=== PATIENT | male | born 1980 | race Caucasian/White ===

== ENCOUNTER 2018-04-19 18:16 | Emergency (ER) | payer MEDICAID ==
[~2018-04-19] VITALS: Ht 185.4 cm; Wt 90.1 kg
[2018-04-19] MEDS ORDERED: EFF25T PO (19:45)
[2018-04-19 19:46] VITALS: BP 152/92
[2018-04-19] MEDS ORDERED: CYCL-1 PO (20:34)
== END 2018-04-19 20:46 | disposition home or self-care (01) ==
LOC: ER 18:17
DX: S46.312A Strain of muscle, fascia and tendon of triceps, left arm, initial encounter (principal); X50.1XXA Overexertion from prolonged static or awkward postures, initial encounter; Y93.43 Activity, gymnastics; Y92.39 Other specified sports and athletic area as the place of occurrence of the external cause; Y99.9 Unspecified external cause status
CPT/HCPCS: 99283

== ENCOUNTER 2019-10-24 06:45 | Inpatient (IN) | payer MEDICAID, OTHER ==
[~2019-10-24] VITALS: Ht 408.9 cm; Wt 89.0 kg
[2019-10-24] VITALS (12 sets, daily range): BP systolic 125–173; BP diastolic 54–89
[~2019-10-24 06:45] MED LIST: CYCL-1 PO; VENL25TA48 PO
[2019-10-24 07:28] LABS: BASOPHILS % (AUTO) 0.4 % (0-1); EOSINOPHILS # (AUTO) 0.1 X10'3 (0-0.9); EOSINOPHILS % (AUTO) 1.7 % (0-6); HEMATOCRIT 47.5 % (42.0-52.0); HEMOGLOBIN 15.8 g/dl (14.0-17.9); LYMPHOCYTES # (AUTO) 0.8 X10'3 (1.1-4.8); LYMPHOCYTES % (AUTO) 14.6 % (21-51); MEAN CORPUSCULAR HEMOGLOBIN 29.9 PG (27.0-31.0); MEAN CORPUSCULAR HGB CONC 33.3 g/dL (33.0-36.5); MEAN PLATELET VOLUME 9.4 FL (7.4-10.4); MONOCYTES # (AUTO) 0.3 X10'3 (0-0.9); MONOCYTES % (AUTO) 5.6 % (2-12); NEUTROPHILS # (AUTO) 4.5 X10'3 (1.8-7.7); NEUTROPHILS % (AUTO) 77.7 % (42-75); PLATELET COUNT 210 X10'3 (140-440); RED BLOOD COUNT 5.28 X10'6 (4.70-6.10); RED CELL DISTRIBUTION WIDTH 13.9 % (11.5-14.5); WHITE BLOOD COUNT 5.8 X10'3 (4.5-11.0)
[2019-10-24 07:34] LABS: ALANINE AMINOTRANSFERASE 969 U/L (12-78); ALBUMIN 4.2 G/DL (3.4-5.0); ALBUMIN/GLOBULIN RATIO 1.1 (1.1-1.5); ALKALINE PHOSPHATASE 168 IU/L (46-116); AMYLASE 65 U/L (25-115); ANION GAP 6 (8-16); ASPARTATE AMINO TRANSFERASE 491 U/L (10-37); BILIRUBIN,TOTAL 2.4 MG/DL (0.1-1.0); BLOOD UREA NITROGEN 11 MG/DL (7-18); BUN/CREATININE RATIO 8.7 (5.4-32.0); CHLORIDE 106 MMOL/L (99-107); CREATININE 1.26 MG/DL (0.60-1.10); GLUCOSE 167 MG/DL (70-104); LIPASE 265 U/L (73-393); POTASSIUM 3.9 MMOL/L (3.5-5.1); SODIUM 139 MMOL/L (135-145); TOTAL CARBON DIOXIDE 26.8 MMOL/L (24-32); TOTAL PROTEIN 7.9 G/DL (6.4-8.2); eGFR 64 ML/MIN
[2019-10-24] MEDS ORDERED: morphine 4 MG/ML inj SYRINge IV PRN (07:40)
[2019-10-24] MEDS ORDERED: ondansetron/PF 4mg/2ml inj IV ONE (07:40)
[2019-10-24] MEDS ORDERED: normal saline 1000ML IV soln IVB ONE (07:40)
[2019-10-24] MEDS ORDERED: pantoprazole 40 MG vial IV ONE (07:40)
[2019-10-24] MEDS ORDERED: famotidine/PF 10 mg/ml inj IV ONE (07:40)
[2019-10-24 08:04] LABS: CLARITY,URINE CLEAR (Clear); COLOR,URINE YELLOW (Yellow); GLUCOSE, URINE NEGATIVE (Neg); KETONES,URINE NEGATIVE (Neg); LEUKOCYTE ESTERASE ,URINE NEGATIVE (Neg); NITRITES, URINE NEGATIVE (Neg); OCCULT BLOOD,URINE TRACE-INTACT (Neg); PH,URINE 6.5 (4.8-8.0); PROTEIN,URINE NEGATIVE (Neg)
[2019-10-24 08:07] LABS: UA COLLECTION TYPE NON-SPECIFIED
[2019-10-24 08:16] LABS: MUCUS STRANDS MODERATE /LPF (Neg); SQUAMOUS EPITHELIAL CELL,UR FEW /LPF (FEW)
[2019-10-24 08:17] LABS: CAL OXALATE CRYSTALS 3+ /HPF (NEGATIVE); HYALINE CASTS 0-3 /LPF (NEGATIVE)
[2019-10-24 08:18] LABS: BACTERIA,URINE 1+ /HPF (Neg); RBC,URINE 0-2 /HPF (0-2); WBC,URINE 0-4 /HPF (0-4)
[2019-10-24] MEDS ORDERED: bisacodyl 10mg suppository rectal RC PRN (09:45)
[2019-10-24] MEDS ORDERED: morphine 2 MG/ML inj. syringe IV PRN ×2 (09:45)
[2019-10-24] MEDS ORDERED: HYDROcodone/acetaminophen 5mg/325mg tablet PO PRN (09:45)
[2019-10-24] MEDS ORDERED: HYDROcodone/acetaminophen 10/325mg tab PO PRN (09:45)
[2019-10-24] MEDS ORDERED: mag hydrox/Alum hydrox/simeth 30ml oral suspension PO PRN (09:45)
[2019-10-24] MEDS ORDERED: magnesium 4gm in 100ml NS 100 ML IV PRN (09:45)
[2019-10-24] MEDS ORDERED: acetaminophen 325mg tablet PO PRN ×2 (09:45)
[2019-10-24] MEDS ORDERED: ondansetron/PF 4mg/2ml inj IV PRN (09:45)
[2019-10-24] MEDS ORDERED: magnesium Cl slow-release 64mg tablet PO PRN (09:45)
[2019-10-24] MEDS ORDERED: NORMAL SALINE IV ONE ×2 (09:45→14:50)
[2019-10-24] MEDS ORDERED: SINCALIDE IV ONE ×2 (09:45→14:50)
[2019-10-24] MEDS ORDERED: magnesium 2GM in 50ml NS 50 ML IV PRN (09:45)
[2019-10-24] MEDS ORDERED: acetaminophen 650mg rectal suppository RC PRN (09:45)
[2019-10-24] MEDS ORDERED: potassium CL 10mEq/100ml bag 100 ML IV PRN ×2 (09:45)
[2019-10-24] MEDS ORDERED: diphenhydrAMINE 25mg capsule PO PRN (09:45)
[2019-10-24] MEDS ORDERED: magnesium hydroxide 30ml (MOM) UD suspension PO PRN (09:45)
[2019-10-24] MEDS ORDERED: potassium Cl 20 mEq SR tablet PO PRN ×2 (09:45)
[2019-10-24] MEDS: normal saline 1000ml 1,000 ML IV SCH ×2 (10:06→16:22)
[2019-10-24 10:22] LABS: URINE AMPHETAMINE SCREEN NEGATIVE (Neg); URINE BARBITUATE SCREEN NEGATIVE (Neg); URINE BENZODIAZEPINES SCREEN NEGATIVE (Neg); URINE CANNABINOID SCREEN NEGATIVE (Neg); URINE COCAINE SCREEN NEGATIVE (Neg); URINE METHADONE SCREEN NEGATIVE (Neg); URINE OPIATE SCREEN NEGATIVE (Neg); URINE PHENCYCLIDINE SCREEN NEGATIVE (Neg)
[2019-10-24] MEDS ORDERED: NO HOME MEDS (10:31)
[2019-10-24 10:38] LABS: HEMOGLOBIN A1C 6.1 % (4.5-6.2)
[2019-10-24 10:54] LABS: ETHANOL < 0.010 GM/DL (0.0-0.010)
--- NOTE | 2019-10-24 11:46 | NUR ---
PAGER ID: [phone] MESSAGE: JUSTIN [id number] RE: [facility] ED [facility], DO YOU WANT HIDA AND MRCP?
--- NOTE | 2019-10-24 12:00 | NUR ---
PATIENT TO MRI
--- NOTE | 2019-10-24 12:12 | NUR ---
ATTEMPTED TO CALL REPORT, NO RN ASSIGNED TO PATIENT. RN WILL RETURN CALL.
--- NOTE | 2019-10-24 13:10 | NUR ---
RECEIVED REPORT FROM ARGENIS HODGE. PATIENT ARRIVED TO FLOOR. TRANSFERRED TO BED INDEPENDENTLY.
[2019-10-24 14:42] LABS: HIV ANTIBODY 1&2 RAPID NON-REACTIVE (Neg)
--- NOTE | 2019-10-24 16:28 | NUR ---
PAGER ID: [phone] MESSAGE: Margi HermosilloA: patient back from HIDA scan, it has resulted. would you like to keep him NPO? [phone]
[2019-10-24] MEDS ORDERED: fentaNYL/PF 50MCG/1 ML 2ML syringe ONE (17:02)
[2019-10-24] MEDS ORDERED: MIDAZolam 5mg/5ml vial ONE ×2 (17:02)
[2019-10-24] MEDS ORDERED: LIDOcaine Viscous 15ml cup ONE (17:02)
[2019-10-24] MEDS ORDERED: diphenhydrAMINE 50 mg/ml inj ONE (17:02)
[2019-10-24] MEDS ORDERED: iohexol 300 MG/1 ML 50ml polymer ONE (17:03)
[2019-10-24] MEDS ORDERED: glucagon, human recombinant 1mg kit ONE (17:03)
--- NOTE | 2019-10-24 18:31 | NUR ---
Problems reprioritized. Patient report given, questions answered & plan of care reviewed with ARGENIS AG.
[2019-10-24] MEDS ORDERED: K and/or MAG REPLACEMENT MC SCH (20:00)
[2019-10-24] MEDS ORDERED: heparin, porcine 5000 units/ml vial SQ SCH (20:00)
--- NOTE | 2019-10-25 03:20 | NUR ---
Patient woke up this morning and wanted to speak with nurse. Patient wanted to be disconnected to his IV fluids. Patient also stated he woke up this morning feeling great. In a good mood. No pain rating it 0/10. Patient decided he does not want to have the surgery done. Last night when Dr. Ronaldo haile MD was made aware that patient was unsure if he wanted to proceed with surgery. Surgeon ask patient why he didn't want to have it done and explain the benefits of having it done and the risks of not having it done. Surgeon states he will come in the morning again to see if he would like to proceed with the surgery.
[2019-10-25 05:11] LABS: BASOPHILS % (AUTO) 0.5 % (0-1); EOSINOPHILS # (AUTO) 0.2 X10'3 (0-0.9); EOSINOPHILS % (AUTO) 4.4 % (0-6); HEMATOCRIT 42.2 % (42.0-52.0); HEMOGLOBIN 14.1 g/dl (14.0-17.9); LYMPHOCYTES # (AUTO) 1.3 X10'3 (1.1-4.8); LYMPHOCYTES % (AUTO) 22.7 % (21-51); MEAN CORPUSCULAR HEMOGLOBIN 30.1 PG (27.0-31.0); MEAN CORPUSCULAR HGB CONC 33.3 g/dL (33.0-36.5); MEAN CORPUSCULAR VOLUME 90.4 FL (78-98); MEAN PLATELET VOLUME 9.5 FL (7.4-10.4); MONOCYTES # (AUTO) 0.5 X10'3 (0-0.9); MONOCYTES % (AUTO) 8.8 % (2-12); NEUTROPHILS # (AUTO) 3.5 X10'3 (1.8-7.7); NEUTROPHILS % (AUTO) 63.6 % (42-75); PLATELET COUNT 169 X10'3 (140-440); RED BLOOD COUNT 4.67 X10'6 (4.70-6.10); RED CELL DISTRIBUTION WIDTH 13.8 % (11.5-14.5); WHITE BLOOD COUNT 5.6 X10'3 (4.5-11.0)
[2019-10-25 05:44] LABS: ALANINE AMINOTRANSFERASE 611 U/L (12-78); ALBUMIN 3.4 G/DL (3.4-5.0); ALBUMIN/GLOBULIN RATIO 1.1 (1.1-1.5); ALKALINE PHOSPHATASE 143 IU/L (46-116); ANION GAP 8 (8-16); ASPARTATE AMINO TRANSFERASE 159 U/L (10-37); BILIRUBIN,TOTAL 0.9 MG/DL (0.1-1.0); BLOOD UREA NITROGEN 9 MG/DL (7-18); BUN/CREATININE RATIO 8.3 (5.4-32.0); CALCIUM 8.6 MG/DL (8.5-10.1); CHLORIDE 107 MMOL/L (99-107); CHOLESTEROL 190 MG/DL (0-200); CREATININE 1.09 MG/DL (0.60-1.10); GLUCOSE 97 MG/DL (70-104); HDL CHOLESTEROL 64 MG/DL (35-60); LDL CHOLESTEROL 109 MG/DL (50-100); MAGNESIUM 1.9 MG/DL (1.5-2.4); POTASSIUM 3.6 MMOL/L (3.5-5.1); SODIUM 141 MMOL/L (135-145); TOTAL CARBON DIOXIDE 26.5 MMOL/L (24-32); TOTAL PROTEIN 6.6 G/DL (6.4-8.2); TRIGLYCERIDES 75 MG/DL (20-135); eGFR 76 ML/MIN
[2019-10-25] MEDS: normal saline 1000ml 1,000 ML IV SCH (05:44)
--- NOTE | 2019-10-25 06:47 | NUR ---
Patient in room [facility] 348A. I have received report from ARGENIS AG and had the opportunity to ask questions and assume patient care.
[2019-10-25 07:00] VITALS: BP 135/86
--- NOTE | 2019-10-25 08:15 | NUR ---
PATIENT LEFT AMA, WOULD NOT WAIT FOR DR TO COME SEE HIM. IV WAS TAKEN OUT. PATIENT WAS EDUCATED SEVERAL TIMES ABOUT CONDITION AND THAT EVEN THOUGH HE FEELS WELL RIGHT NOW WITHOUT SURGERY SYMPTOMS HAVE THE POTENTIAL TO COME BACK, PATIENT STATED HE WAS AWARE AND DID NOT WANT SURGERY AT THIS TIME.
[2019-10-25 11:12] LABS: HBSAG SCREEN Negative (Negative); HEP A AB, IGM Negative (Negative); HEPATITIS C ANTIBODY <0.1 s/co ratio (0.0-0.9)
== END 2019-10-25 09:08 | disposition left against medical advice (07) | DRG 446 ==
LOC: ER 06:45 → ED HOLD 09:44 → SUR 3N 13:04
PROVIDERS: ADMIT Family Medicine; ATTEND Family Medicine
PROC: 0FC98ZZ Extirpation of Matter from Common Bile Duct, Via Natural or Artificial Opening Endoscopic (ICD-10-PCS; principal; 2019-10-24)
PROC: BF101ZZ Fluoroscopy of Bile Ducts using Low Osmolar Contrast (ICD-10-PCS; 2019-10-24)
PROC: CF1C1ZZ Planar Nuclear Medicine Imaging of Hepatobiliary System, All using Technetium 99m (Tc-99m) (ICD-10-PCS; 2019-10-24)
DX: K80.51 Calculus of bile duct without cholangitis or cholecystitis with obstruction (principal); R19.7 Diarrhea, unspecified; Z53.29 Procedure and treatment not carried out because of patient's decision for other reasons; R93.2 Abnormal findings on diagnostic imaging of liver and biliary tract
CPT/HCPCS: 36415; 43262; 43264; 74176; 74181; 78227; 80053; 80061; 80305; 80320; 81001; 82150; 83036; 83690; 83735; 84100; 84443; 85025; 86703; 86705; 86706; 86709; 86803; 87081; 87340; 96374; 96375; 99152; 99153; 99285; A4620; A9537; C1769; C9113; G0378; J1200; J1610; J2250; J2405; J3010; J3490; J7030; J7040; Q9967

== ENCOUNTER 2024-02-17 10:16 | Emergency (ER) | payer OTHER, MEDICAID ==
[~2024-02-17] VITALS: Ht 185.4 cm; Wt 98.0 kg
[~2024-02-17 10:16] MED LIST changes: -CYCL-1 PO; +NO HOME MEDS; -VENL25TA48 PO
[2024-02-17 12:27] LABS: BASOPHILS % (AUTO) 0.6 % (0-1); EOSINOPHILS # (AUTO) 0.1 X10'3 (0-0.9); EOSINOPHILS % (AUTO) 1.4 % (0-6); HEMATOCRIT 46.4 % (42.0-52.0); LYMPHOCYTES # (AUTO) 1.7 X10'3 (1.1-4.8); LYMPHOCYTES % (AUTO) 22.9 % (21-51); MEAN CORPUSCULAR HEMOGLOBIN 30.8 PG (27.0-31.0); MEAN CORPUSCULAR HGB CONC 34.5 g/dL (33.0-36.5); MEAN CORPUSCULAR VOLUME 89.2 FL (78-98); MEAN PLATELET VOLUME 8.7 FL (7.4-10.4); MONOCYTES # (AUTO) 0.6 X10'3 (0-0.9); NEUTROPHILS # (AUTO) 4.9 X10'3 (1.8-7.7); NEUTROPHILS % (AUTO) 67.1 % (42-75); PLATELET COUNT 272 X10'3 (140-440); RED CELL DISTRIBUTION WIDTH 13.7 % (11.5-14.5); WHITE BLOOD COUNT 7.2 X10'3 (4.5-11.0)
[2024-02-17 12:44] LABS: ALBUMIN 4.3 G/DL (3.4-5.0); ANION GAP 9 (8-16); BLOOD UREA NITROGEN 18 MG/DL (7-18); BUN/CREATININE RATIO 14.9 (10.0-20.0); CALCIUM 9.1 MG/DL (8.5-10.1); CHLORIDE 108 MMOL/L (99-107); CREATININE 1.21 MG/DL (0.60-1.10); GLUCOSE 122 MG/DL (70-104); POTASSIUM 4.1 MMOL/L (3.5-5.1); SODIUM 143 MMOL/L (135-145); eCRCL 91 ML/MIN; eGFR 66 ML/MIN
[2024-02-17 13:43] VITALS: BP 127/79; PULSE 78; RESP 16; TEMP 98.2; O2SAT 97
== END 2024-02-17 13:45 | disposition home or self-care (01) ==
LOC: ER 10:16
DX: M54.2 Cervicalgia (principal); M54.50 Low back pain, unspecified; V89.2XXA Person injured in unspecified motor-vehicle accident, traffic, initial encounter; Y93.89 Activity, other specified; Y92.410 Unspecified street and highway as the place of occurrence of the external cause; Y99.8 Other external cause status
CPT/HCPCS: 36415; 72125; 72128; 72131; 80048; 85025; 99284; L0172